=== PATIENT | male | born 1940 | race Native Hawaiian/Other Pacific Islander ===

== ENCOUNTER 2020-06-04 11:31 | Emergency (ER) | payer OTHER ==
[~2020-06-04] VITALS: Ht 185.4 cm; Wt 90.7 kg
[2020-06-04 11:40] VITALS: BP 166/94; TEMP 98.9
[2020-06-04 12:17] LABS: PLATELET COUNT 138 K/uL (142-355)
[2020-06-04 12:26] LABS: POTASSIUM 3.6 mmol/L (3.6-5.2)
[2020-06-04] MEDS ORDERED: NITROSTAT0.4 MG SL (15:54)
[2020-06-04] MEDS ORDERED: ALLO300T23 PO (15:55)
[2020-06-04] MEDS ORDERED: EUTHYROX50 MCG PO (15:56)
[2020-06-04] MEDS ORDERED: POLY GLYCOL3350 M1 PO (15:56)
[2020-06-04] MEDS ORDERED: TAMS0.4C PO (15:57)
[2020-06-04] MEDS ORDERED: LIPITOR40 MG PO (15:58)
[2020-06-04] MEDS ORDERED: TYLENOL325 MG PO (15:59)
[2020-06-04] MEDS ORDERED: MYRBETRIQ50 MG PO (16:00)
[2020-06-04] MEDS ORDERED: SERT50TA PO (16:00)
[2020-06-04] MEDS ORDERED: CLON0.5T36 PO (16:01)
[2020-06-04] MEDS ORDERED: RISP1TAB PO (16:02)
[2020-06-04] MEDS ORDERED: RISP2TAB2 PO (16:02)
== END 2020-06-04 15:05 | disposition still patient (30) ==
LOC: ED 11:31
PROVIDERS: General Practice
DX: N39.0 Urinary tract infection, site not specified (principal); F28 Other psychotic disorder not due to a substance or known physiological condition; Z11.59 Encounter for screening for other viral diseases; Z04.6 Encounter for general psychiatric examination, requested by authority
CPT/HCPCS: 80053; 81000; 85027; 87086; 87088; 87635; 93005; 96372; 99283; J0696; U00003